=== PATIENT | female | born 1960 | race Two or more races ===

== ENCOUNTER 2023-06-29 19:20 | Emergency (ER) | payer MEDICAID, OTHER ==
[~2023-06-29] VITALS: Ht 154.9 cm; Wt 66.3 kg
[2023-06-29 19:58] LABS: Basophils # (auto) 0 10 ^3/uL (0-0.2); Basophils % (auto) 0.6 % (0.0-2.0); Eosinophils # (auto) 0.3 10 ^3/uL (0-0.8); Eosinophils % (auto) 3.9 % (0.0-7.0); Hematocrit 38.1 % (36.0-46.0); Hemoglobin 12.5 g/dL (12.2-16.2); Lymphocytes # (auto) 2.5 10 ^3/uL (0.4-5.4); Lymphocytes % (auto) 28.3 % (10.0-50.0); Mean Corpuscular Hemoglobin 29.2 pg (28.0-32.0); Mean Corpuscular Hgb Conc. 32.8 g/dL (32.0-36.0); Monocytes # (auto) 0.6 10 ^3/uL (0-1.3); Monocytes % (auto) 6.5 % (0.0-12.0); Neutrophils # (auto) 5.4 10 ^3/uL (1.6-8.6); Neutrophils % (auto) 60.7 % (37.0-80.0); Red Blood Cells 4.29 10^6/uL (4.0-5.20); Red Cell Distribution Width 13.6 % (11.8-14.3); White Blood Cell 8.8 10^3/uL (4.4-10.8)
[2023-06-29 20:31] LABS: Alanine Aminotransferase 21 U/L (7-40); Alkaline Phosphatase 77 U/L (46-116); Anion Gap 8.4 (5-15); BUN/Creatinine Ratio 26.3 (10.0-20.0); Blood Urea Nitrogen 20 mg/dL (9-23); Calcium 9.4 mg/dL (8.7-10.4); Carbon Dioxide 24.6 mmol/L (20-30); Chloride 108 mmol/L (98-107); Glucose 91 mg/dL (74-106); Magnesium 2.1 mg/dL (1.6-2.6); Sodium 141 mmol/L (136-145)
[2023-06-29 20:32] LABS: Albumin 4.4 g/dL (3.2-4.8); Aspartate Aminotransferase 8 U/L (13-40); Bilirubin, Total 0.3 mg/dL (0.2-1.0)
[2023-06-29] MEDS ORDERED: ZOFR4T PO (23:37)
[2023-06-29] MEDS ORDERED: MECL25CH85 PO (23:37)
[2023-06-29 23:53] VITALS: BP 132/82; PULSE 64; RESP 18; TEMP 97.9; O2SAT 97
== END 2023-06-29 23:56 | disposition home or self-care (01) ==
LOC: ER 19:20
DX: R07.9 Chest pain, unspecified (principal); R42 Dizziness and giddiness; J45.909 Unspecified asthma, uncomplicated; I10 Essential (primary) hypertension; Z88.0 Allergy status to penicillin
CPT/HCPCS: 36415; 70450; 71045; 80053; 83735; 83880; 84443; 84484; 85025; 93005

== ENCOUNTER 2025-04-06 10:38 | Emergency (ER) | payer MEDICAID ==
[~2025-04-06] VITALS: Ht 154.9 cm; Wt 61.3 kg
[~2025-04-06 10:38] MED LIST: MECL25CH85 PO; ZOFR4T PO
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
[2025-04-06] MEDS: KETOROLAC TROMETH 60MG/2ML VIAL IM ONE (11:36)
[2025-04-06] MEDS: METHOCARBAMOL 500 MG TAB PO ONE (11:36)
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
[2025-04-06] MEDS ORDERED: IBUP-1456 PO (13:30)
[2025-04-06] MEDS ORDERED: HYDR-4902 PO (13:30)
[2025-04-06] MEDS ORDERED: METH-1181 PO (13:30)
[2025-04-06 13:42] VITALS: BP 136/80; PULSE 62; RESP 16; TEMP 97.9; O2SAT 99
== END 2025-04-06 14:11 | disposition home or self-care (01) ==
LOC: ER 10:38
DX: S16.1XXA Strain of muscle, fascia and tendon at neck level, initial encounter (principal); S29.011A Strain of muscle and tendon of front wall of thorax, initial encounter; S46.912A Strain of unspecified muscle, fascia and tendon at shoulder and upper arm level, left arm, initial encounter; S20.219A Contusion of unspecified front wall of thorax, initial encounter; J45.909 Unspecified asthma, uncomplicated; I10 Essential (primary) hypertension; Z90.710 Acquired absence of both cervix and uterus; Z88.5 Allergy status to narcotic agent; Z88.0 Allergy status to penicillin; V89.2XXA Person injured in unspecified motor-vehicle accident, traffic, initial encounter; Y93.89 Activity, other specified; Y92.410 Unspecified street and highway as the place of occurrence of the external cause; Y99.8 Other external cause status
CPT/HCPCS: 71101; 72040; 73030; 96372; 99284; J1885

== ENCOUNTER 2025-07-14 12:52 | Inpatient (IN) | payer MEDICAID ==
[~2025-07-14] VITALS: Ht 154.9 cm; Wt 63.4 kg
[~2025-07-14 12:52] MED LIST changes: +HYDR-4902 PO; +IBUP-1456 PO; +METH-1181 PO
[2025-07-14] MEDS: MORPHINE SULFATE 4 MG/ML SYR/VIAL IV ONE (13:49)
[2025-07-14] MEDS: SODIUM CHLORIDE 0.9% 1,000 ML IV ONE (13:55)
[2025-07-14] MEDS: ONDANSETRON HCL 4 MG/2 ML VIAL IV ONE (13:55)
--- NOTE | 2025-07-14 14:00 | ED.PDOC ---
GI ASSESSMENT HPI Comments 65 y/o F, with PMHx of HTN and asthma presents to the ED for CC of diarrhea. Patient states, she has been having diarrhea with associated diffuse abdominal pain x9days. Patient reports, that she has been unable to keep food down since, commencement of symptoms. No other symptoms or modifying factors are present at this time. Chief Complaint: Diarrhea Time Seen by MD: 13:30 Primary Care Provider: [facility] Notes: Nurses Notes, Medications, Allergies Allergies: Coded Allergies: Codeine (Verified Allergy, Unknown, 04/06/25) Penicillins (Verified Allergy, Unknown, 06/29/23) Tramadol (Verified Allergy, Unknown, 04/06/25) Home Meds Active Scripts Hydrocodone-Acetaminophen (Hydrocodone Bitartrate/AC 5-325 mg) 1 Tab Tab, 1 TAB PO Q6HP PRN, #20 TAB Prn breakthrough pain Prov:ROBERT HERNANDEZ MD 04/06/25 Methocarbamol (Methocarbamol) 500 Mg Tab, 1000 MG PO Q8HP PRN, #30 TAB PRN muscle spasm Prov:ROBERT HERNANDEZ MD 04/06/25 Ibuprofen (Ibuprofen) 800 Mg Tab, 800 MG PO Q8HP PRN, #30 TAB Prn pain. take with food. Prov:ROBERT HERNANDEZ MD 04/06/25 Meclizine HCl (Antivert) 25 Mg Chw, 1 TAB PO Q8HR, #12 TAB.CHEW as needed for dizziness Prov:THEA GAMINO Q OWNER/PHOTOGRAPHER 06/29/23 Ondansetron Odt 4MG Tab (ZOFRAN PO) 4 Mg Tb, 1 TAB PO Q8HR, #12 TAB ODT TAB-DISSOLVE IN MOUTH, THEN SWALLOW as needed for nausea vomiting Prov:THEA GAMINO OWNER/PHOTOGRAPHER 06/29/23 Information Source: Patient Mode of Arrival: Ambulatory Timing: Days Duration: Since onset Prehospital treatment: None Vomitus: None Stool: Watery Severity: Moderate Recent: None Recent Hx of: None Pain Location: Diffuse Modifying Factors: Nothing Associated sign and symptoms: Diarrhea, Abdominal Pain Past Medical History PAST MEDICAL HISTORY: Asthma, HTN Surgical History: Hysterectomy COMMUNITY RELATIONS MANAGER History: Denies all COMMUNITY RELATIONS MANAGER Hx Family History Family History: Reviewed,noncontributory to illness Social History Smoker: Non-Smoker Alcohol: Denies ETOH Use Drugs: Denies Drug Use Lives In: Home Constitutional: denies: chills, diaphoresis, fatigue, fever, malaise, sweats, weakness, others EENTM: denies: blurred vision, double vision, ear bleeding, ear discharge, ear drainage, ear pain, ear ringing, eye pain, eye redness, hearing loss, mouth pain, mouth swelling, nasal discharge, nose bleeding, nose congestion, nose pain, photophobia, tearing, throat pain, throat swelling, voice changes, others Respiratory: denies: cough, hemoptysis, orthopnea, SOB at rest, shortness of breath, SOB with excertion, stridor, wheezing, others Cardiovascular: denies: chest pain, dizzy spells, diaphoresis, Dyspnea on exertion, edema, irregular heart beat, left arm pain, lightheadedness, palpitations, PND, syncope, others Gastrointestinal: reports: abdominal pain, diarrhea; denies: abdomen distended, blood streaked bowels, constipated, dysphagia, difficulty swallowing, hematemesis, melena, nausea, poor appetite, poor fluid intake, rectal bleeding, rectal pain, vomiting, others Genitourinary: denies: abnormal vagina bleeding, burning, dyspareunia, dysuria, flank pain, frequency, hematuria, incontinence, pain, , vagina discharge, urgency, others Neurological: denies: dizziness, fainting, headache, left sided numbness, left sided weakness, numbness, paresthesia, pre-existing deficit, right sided numbness, right sided weakness, seizure, speech problems, tingling, tremors, weakness, others Musculoskeletal: denies: back pain, gout, joint pain, joint swelling, muscle pain, muscle stiffness, neck pain, others Integumetry: denies: bruises, change in color, change in hair/nails, dryness, laceration, lesions, lumps, rash, wounds, others Allergic/Immunocompromised: denies: Difficulty Healing, Frequent Infections, Hives, Itching, others Hematologic/Lymphatic: denies: anemia, blood clots, easy bleeding, easy bruising, swollen glands, others Endocrine: denies: excessive hunger, excessive sweating, excessive thirst, excessive urination, flushing, intolerance to cold, intolerance to heat, unexplained weight gain, unexplained weight loss, others Psychiatric: denies: anxiety, bipolar disorder, depression, hopeless, panic disorder, schizophrenia, sleepless, suicidal, others All Other Systems: Reviewed and Negative Physical Exam General Appearance: Moderate Distress HEENT: Normal ENT Inspection, Pharynx Normal, TMs Normal Neck: Full Range of Motion, Non-Tender, Normal, Normal Inspection Respiratory: Chest Non-Tender, Lungs Clear, No Accessory Muscle Use, No Respiratory Distress, Normal Breath Sounds Cardiovascular: No Edema, No JVD, No Murmur, No Gallop, Normal Peripheral Pulses, Regular Rate/Rhythm Breast Exam: Deferred Gastrointestinal: No Organomegaly, Non Tender, No Pulsatile Mass, Normal Bowel Sounds, Soft Genitalia: Deferred Pelvic: Deferred Rectal: Deferred Extremities: No calf tenderness, Normal capillary refill, Normal inspection, Normal range of motion, Non-tender, No pedal edema Musculoskeletal : Apperance: Normal Neurologic: Alert, tankerman II-XII nml as Tested, No Motor Deficits, Normal Affect, Normal Mood, No Sensory Deficits Cerebellar Function: Normal Reflexes: Normal Skin: Dry, Normal Color, Warm Peripheral Pulses: 3+ Radial (R), 3+ Radial (L) Lymphatic: No Adenopathy Was a procedure done? Was a procedure done?: No GI differential Dx Differential Diagnosis: Constipation, Diverticular disease, Esophagitis, Gastritis/PUD, Gastroenteritis, Inflammatory BD, Food Poisoning, Bacterial, Viral X-Ray, Labs, Meds, VS Vital Signs Date Time Temp Pulse Resp B/P (MAP) Pulse Ox O2 Delivery O2 Flow Rate FiO2 07/14/25 12:54 97.9 89 16 136/71 99 97.9 Lab Test 07/14/25 13:57 Range/Units White Blood Count 8.9 4.4-10.8 10^3/uL Red Blood Count 4.56 4.0-5.20 10^6/uL Hemoglobin 13.5 12.2-16.2 g/dL Hematocrit 40.8 36.0-46.0 % Mean Corpuscular Volume 89.5 80.0-100.0 fL Mean Corpuscular Hemoglobin 29.6 28.0-32.0 pg Mean Corpuscular Hemoglobin Concent 33.0 32.0-36.0 g/dL Red Cell Distribution Width 13.8 11.8-14.3 % Platelet Count 296 140-450 10^3/uL Mean Platelet Volume 7.2 6.9-10.8 fL Neutrophils (%) (Auto) 65.7 37.0-80.0 % Lymphocytes (%) (Auto) 23.8 10.0-50.0 % Monocytes (%) (Auto) 6.7 0.0-12.0 % Eosinophils (%) (Auto) 3.4 0.0-7.0 % Basophils (%) (Auto) 0.4 0.0-2.0 % Neutrophils # (Auto) 5.9 1.6-8.6 10 ^3/uL Lymphocytes # (Auto) 2.1 0.4-5.4 10 ^3/uL Monocytes # (Auto) 0.6 0-1.3 10 ^3/uL Eosinophils # (Auto) 0.3 0-0.8 10 ^3/uL Basophils # (Auto) 0 0-0.2 10 ^3/uL Nucleated Red Blood Cells 0.1 % Sodium Level 142 136-145 mmol/L Potassium Level 4.1 3.5-5.1 mmol/L Chloride Level 110 H 98-107 mmol/L Carbon Dioxide Level 22 20-31 mmol/L Anion Gap 10 5-15 Blood Urea Nitrogen 18 9-23 mg/dL Creatinine 0.79 0.550-1.02 mg/dL Glomerular Filtration Rate Calc 83 >90 mL/min BUN/Creatinine Ratio 22.8 H 10.0-20.0 Serum Glucose 84 74-106 mg/dL Calcium Level 9.3 8.7-10.4 mg/dL Current Medications Medications (Trade) Dose Ordered Sig/Ella Route Start Time Stop Time Status Last Admin Sodium Chloride 1,000 ml @ 1,000 mls/hr Q1H ONCE IV 07/14/25 13:30 07/14/25 14:29 DC 07/14/25 13:55 Diphenoxylate HCl/ Atropine (Lomotil Tablet) 5 mg ONCE ONCE PO 07/14/25 13:30 07/14/25 13:31 DC 07/14/25 14:17 Ondansetron HCl (Zofran) 4 mg ONCE ONCE IV 07/14/25 13:30 07/14/25 13:31 DC 07/14/25 13:55 Patient alert. Complaining of diarrhea. Vitals stable. Answering questions. Abdomen is soft nontender. Establish intravenous access. Was given fluids. Was given Lomotil. Was given Zofran. WBC within normal limits. Hemoglobin within normal limits. CT scan of the abdomen reviewed does not show any acute process. Explained to the patient. Was told to follow up with her primary care physician. Was told to come back if there is any problem. [facility] [id number] [facility] [id number] Ph: [phone] DIAGNOSTIC IMAGING Diagnostic Imaging Report : [id number] Signed PATIENT: ADÁN CASHACCT: [id number] UNIT: [id number] : 1960 LOC: ER ROOM / BED: / AGE / SEX: 65 / F ADM STATUS: REG ER SERVICE 1329 ORDERING PHYSICIAN: AALIYAH ROSENBAUM MD PROCEDURE(s): ABPL - CT AB PEL WO CON-NO ORAL OR IV REASON: colitis ORDER NUMBER(s): [id number], ACCESSION NUMBER(s): [id number] CLINICAL INFORMATION: Colitis. TECHNIQUE: Axial CT images of the abdomen and pelvis were obtained without IV contrast. Coronal and sagittal reformatted images were obtained, reviewed, and stored. Evaluation of the parenchymal organs is limited without IV contrast. Evaluation of the bowel and mesentery is limited without oral contrast. All CT scans at this medical facility are performed using dose modulation techniques as appropriate to a performed exam including the following: Automated exposure control was utilized; adjustment of the MA and/or KV according to patient size; and use of iterative reconstruction technique. CTDIvol = 6.86 mGy DLP = 328.3 mGy-cm COMPARISON: None FINDINGS: Lung bases: Lung bases are clear. Liver: Grossly unremarkable in its noncontrast enhanced appearance. No abnormal density or focal lesion identified. Biliary: No calcified gallstones or biliary ductal dilatation. Spleen: Unremarkable. Pancreas: Grossly unremarkable in its noncontrast enhanced appearance. Adrenal glands: Unremarkable. No mass. Kidneys: Small nonobstructing bilateral renal calculi. No hydronephrosis or obstructing calculi. Aorta/Vascular: Moderate atherosclerotic calcification. No abdominal aortic aneurysm. Retroperitoneum: No mass or lymphadenopathy. Bowel/mesentery: Nonspecific nondilated fluid-filled small bowel loops. No small bowel obstruction. Appendix is not visualized. Pelvic organs: Uterus is surgically absent. Bladder: Unremarkable. No mass. Abdominal wall: No mass or hernia. Bones: No acute fracture or suspicious intraosseous lesion. Mild grade 1 anterolisthesis of L4 on L5. Minimal anterolisthesis of L5 on S1. Moderate to severe disc space narrowing at L4-L5 and L5-S1. IMPRESSION: 1. Nonspecific nondilated fluid-filled small bowel loops. Findings may be seen with ileus or enteritis in the appropriate clinical setting. No small bowel obstruction. 2. Bilateral nephrolithiasis. No hydronephrosis or obstructing calculi. 3. Additional findings as described above. ATED BY: ROBERTO CARLOS LYON DO DICTATED DATE/TIME: 07/14/251415 SIGNED BY: ROBERTO CARLOS LYON DO SIGNED DATE/TIME: 07/14/251415 CC: Time of 1ST Reevaluation: 14:00 Reevaluation 1ST: Improved Patient Education/Counseling: Diagnosis, Treatment Family Education/Counseling: No Family Present SEPSIS Sepsis Screen Date sepsis recognized/suspect: Jul 14, 2025 Time Sepsis recognized/suspect: 1254 Recent Procedure: No On Antibiotic Therapy: No Respiratory Rate >20: No Heart Rate >90: No Temp<36 C (96.8 F) or >38.3 C: No SBP <90 or MAP <65 mmHG: No New Acute Mental Status Change: No Is the patient on CPAP, BIPAP,: No Physician Orders Urinalysis (07/14/25 13:29) Ct Ab Pel Wo Con-No Oral Or Iv (07/14/25 13:29) Vital Signs Date Time Temp Pulse Resp B/P (MAP) Pulse Ox O2 Delivery O2 Flow Rate FiO2 07/14/25 12:54 97.9 89 16 136/71 99 97.9 Laboratory Tests Test 07/14/25 13:57 White Blood Count 8.9 10^3/uL (4.4-10.8) Medications Medications Dose Ordered Sig/Ella Route Start Time Stop Time Status Last Admin Dose Admin Diphenoxylate HCl/ Atropine 5 mg ONCE ONCE PO 07/14/25 13:30 07/14/25 13:31 DC 07/14/25 14:17 Ondansetron HCl 4 mg ONCE ONCE IV 07/14/25 13:30 07/14/25 13:31 DC 07/14/25 13:55 Sodium Chloride 1,000 ml @ 1,000 mls/hr Q1H ONCE IV 07/14/25 13:30 07/14/25 14:29 DC 07/14/25 13:55 Departure 1 Departure Time of Disposition: 14:49 Impression: Primary Impression: Gastroenteritis Disposition: 01 HOME / SELF CARE / HOMELESS Condition: Good Discharged With: Self Critical Care Note Critical Care Time?: No Stability Stability form required: No Heart Score Heart Score: Heart Score Response (Comments) Value History N/A 0 EKG N/A 0 Age N/A 0 Risk Factors N/A 0 Troponin N/A 0 Total 0 I personally scribed for AALIYAH ROSENBAUM MD ([email or web address]) on 07/14/25 at 14:00. Electronically submitted by Jess Cortes ([email or web address]). I personally scribed for AALIYAH ROSENBAUM MD ([email or web address]) on 07/14/25 at 14:53. Electronically submitted by Jess Cortes ([email or web address]). AALIYAH ROSENBAUM MD Jul 14, 2025 14:00
[2025-07-14] MEDS: DIPHENOXYLATE W/ATROPINE 2.5 MG TAB ONE ×2 (14:12→14:13)
[2025-07-14] MEDS: DIPHENOXYLATE W/ATROPINE 2.5 MG TAB PO ONE (14:17)
[2025-07-14 14:19] LABS: Hematocrit 40.8 % (36.0-46.0); Hemoglobin 13.5 g/dL (12.2-16.2); Mean Corpuscular Hemoglobin 29.6 pg (28.0-32.0); Mean Corpuscular Volume 89.5 fL (80.0-100.0); Nucleated Red Blood Cells % 0.1 %
--- NOTE | 2025-07-14 14:19 | DVH ---
CLINICAL INFORMATION: Colitis. TECHNIQUE: Axial CT images of the abdomen and pelvis were obtained without IV contrast. Coronal and s agittal reformatted images were obtained, reviewed, and stored. Evaluation of the parenchymal organs is limited without IV contrast. Evaluation of the bowel and mesentery is limited without oral contras t. All CT scans at this medical facility are performed using dose modulation techniques as appropriat e to a performed exam including the following: Automated exposure control was utilized; adjustment of the MA and/or KV according to patient size; and use of iterative reconstruction technique. CTDIvol = 6.86 mGy DLP = 328.3 mGy-cm COMPARISON: None FINDINGS: Lung bases: Lung bases are clear. Liver: Grossly unremarkable in its noncontrast enhanced appearance. No abnormal density or focal lesi on identified. Biliary: No calcified gallstones or biliary ductal dilatation. Spleen: Unremarkable. Pancreas: Grossly unremarkable in its noncontrast enhanced appearance. Adrenal glands: Unremarkable. No mass. Kidneys: Small nonobstructing bilateral renal calculi. No hydronephrosis or obstructing calculi. Aorta/Vascular: Moderate atherosclerotic calcification. No abdominal aortic aneurysm. Retroperitoneum: No mass or lymphadenopathy. Bowel/mesentery: Nonspecific nondilated fluid-filled small bowel loops. No small bowel obstruction. A ppendix is not visualized. Pelvic organs: Uterus is surgically absent. Bladder: Unremarkable. No mass. Abdominal wall: No mass or hernia. Bones: No acute fracture or suspicious intraosseous lesion. Mild grade 1 anterolisthesis of L4 on L5. Minimal anterolisthesis of L5 on S1. Moderate to severe disc space narrowing at L4-L5 and L5-S1. IMPRESSION: 1. Nonspecific nondilated fluid-filled small bowel loops. Findings may be seen with ileus or enteriti s in the appropriate clinical setting. No small bowel obstruction. 2. Bilateral nephrolithiasis. No hydronephrosis or obstructing calculi. 3. Additional findings as described above.
[2025-07-14 14:26] LABS: Potassium 4.1 mmol/L (3.5-5.1); Sodium 142 mmol/L (136-145)
[2025-07-14 14:27] LABS: Anion Gap 10 (5-15); Calcium 9.3 mg/dL (8.7-10.4); Carbon Dioxide 22 mmol/L (20-31); Chloride 110 mmol/L (98-107)
[2025-07-14 14:32] LABS: BUN/Creatinine Ratio 22.8 (10.0-20.0); Blood Urea Nitrogen 18 mg/dL (9-23); Glucose 84 mg/dL (74-106)
[2025-07-14 15:30] LABS: Urine Protein, UAD Negative (Negative)
[2025-07-14] MEDS ORDERED: MORPHINE SULFATE INJ 2 MG/ml SYRG IV PRN (17:30)
[2025-07-14] MEDS ORDERED: ONDANSETRON HCL 4 MG/2 ML VIAL IV PRN (17:30)
[2025-07-14] MEDS ORDERED: NITROGLYCERIN 0.4 MG SL TAB SL PRN (17:30)
[2025-07-14] MEDS ORDERED: ACETAMINOPHEN 325 MG TAB PO PRN (17:30)
[2025-07-14] MEDS ORDERED: HYDROcodone-ACET 5/325MG TAB PO PRN (17:30)
--- NOTE | 2025-07-14 18:06 | DVHHPRES ---
History of Present Illness Resident Creating Document: CHERYL,TAMARA RESIDENT History of Present Illness savannah Parr is a 65 years old female with a PMH of asthma and prediabetes presented to the ED with the ED with the chief complaints of nausea, vomiting and diarrhea for 9 days. Patient reported that her symptoms began suddenly 9 days ago when she woke up with a abdominal cramps in the middle of night, associated with the diarrhea which is watery approximately 4 times per day without blood. She has been vomiting as well without blood but for past 2 days she has been experiencing weakness and dizziness with the episodes of near fainting and also difficulty with the eating stating everything comes through the mouth so which prompted her to visit ED patient denies eating outside, sick contact, recent travel, recent antibiotic usage. Patient also denies fever, chest pain, chills, and other associated symptoms. PMH: As above PSH: Hysterectomy Family history: Noncontributory Social history: Lives at home. Denies smoking, alcohol and other drug abuse Allergies: Codeine, penicillin, tramadol, morphine Home medications: Unable to recall Patient seen and examined at the bedside. Patient currently reporting having nausea, vomiting, diarrhea but abdominal pain has been improved. Rest of ROS is negative Review of Systems Allergies: Coded Allergies: Codeine (Verified Allergy, Unknown, 04/06/25) Penicillins (Verified Allergy, Unknown, 06/29/23) Tramadol (Verified Allergy, Unknown, 04/06/25) Medications Current Medications Medications Dose Ordered Sig/Ella Route Start Time Stop Time Status Last Admin Dose Admin Sodium Chloride 10 ml Q8HR IV 07/14/25 22:00 Sodium Chloride 1,000 ml @ 60 mls/hr [id number] IV 07/14/25 17:30 Acetaminophen/ Hydrocodone Bitart 1 tab Q4HP PRN PO 07/14/25 17:30 UNV Ondansetron HCl 4 mg Q4HP PRN IV 07/14/25 17:30 Enoxaparin Sodium 40 mg DAILY SC 07/15/25 10:00 UNV Acetaminophen 650 mg Q6HP PRN PO 07/14/25 17:30 Nitroglycerin 0.4 mg Q5MINP PRN SL 07/14/25 17:30 Morphine Sulfate 2 mg Q30M PRN IV 07/14/25 17:30 UNV Metronidazole 100 ml @ 100 mls/hr Q8HR IV 07/14/25 22:00 Pantoprazole Sodium 40 mg BID IV 07/14/25 22:00 Sucralfate 1 gm BID@0600,2200 PO 07/14/25 22:00 Metoclopramide HCl 10 mg Q12HR IV 07/14/25 22:00 Exam Vital Signs Vital Signs Date Time Temp Pulse Resp B/P (MAP) Pulse Ox O2 Delivery O2 Flow Rate FiO2 07/14/25 17:20 98.2 65 18 134/77 (96) 97 98.2 Exam Pt is lying on bed General Appearance: Alert, Oriented X3, Cooperative, Not in acute distress HEENT: Atraumatic, Mucous membranes moist/pink Respiratory: Clear to auscultation, Normal air movement, No added sounds Cardiovascular: Regular rate, Normal S1, Normal S2, No murmurs Abdominal: Umbilical tenderness, Soft, no distention, Extremities: No edema, Normal pulses, No tenderness/swelling Skin: No Significant rash, except past surgical scars Neuro: Normal speech, sensorimotor deficits none Psych/Mental Status: Mental status NL, Mood NL Nurse was there as shoe handler during examination Labs/Xrays Labs Test 07/14/25 13:57 Range/Units White Blood Count 8.9 4.4-10.8 10^3/uL Red Blood Count 4.56 4.0-5.20 10^6/uL Hemoglobin 13.5 12.2-16.2 g/dL Hematocrit 40.8 36.0-46.0 % Mean Corpuscular Volume 89.5 80.0-100.0 fL Mean Corpuscular Hemoglobin 29.6 28.0-32.0 pg Mean Corpuscular Hemoglobin Concent 33.0 32.0-36.0 g/dL Red Cell Distribution Width 13.8 11.8-14.3 % Platelet Count 296 140-450 10^3/uL Mean Platelet Volume 7.2 6.9-10.8 fL Neutrophils (%) (Auto) 65.7 37.0-80.0 % Lymphocytes (%) (Auto) 23.8 10.0-50.0 % Monocytes (%) (Auto) 6.7 0.0-12.0 % Eosinophils (%) (Auto) 3.4 0.0-7.0 % Basophils (%) (Auto) 0.4 0.0-2.0 % Neutrophils # (Auto) 5.9 1.6-8.6 10 ^3/uL Lymphocytes # (Auto) 2.1 0.4-5.4 10 ^3/uL Monocytes # (Auto) 0.6 0-1.3 10 ^3/uL Eosinophils # (Auto) 0.3 0-0.8 10 ^3/uL Basophils # (Auto) 0 0-0.2 10 ^3/uL Nucleated Red Blood Cells 0.1 % Urine Color Light-yellow Yellow Urine Clarity Clear Clear Urine pH 5.5 5.0-9.0 Urine Specific [place] 1.027 1.001-1.035 Urine Protein Negative Negative Urine Ketones Negative Negative Urine Blood Negative Negative /uL Urine Nitrite Negative Negative Urine Bilirubin Negative Negative Urine Urobilinogen Normal Negative mg/dL Urine Leukocyte Esterase Negative Negative /uL Urine RBC <1 0 - 4 /hpf Urine Microscopic WBC 2 0-5 /HPF Urine Squamous Epithelial Cells Few <5 /hpf Urine Bacteria None seen None Seen /hpf Urine Mucus Few None Seen Urine Glucose Normal Normal mg/dL Sodium Level 142 136-145 mmol/L Potassium Level 4.1 3.5-5.1 mmol/L Chloride Level 110 H 98-107 mmol/L Carbon Dioxide Level 22 20-31 mmol/L Anion Gap 10 5-15 Blood Urea Nitrogen 18 9-23 mg/dL Creatinine 0.79 0.550-1.02 mg/dL Glomerular Filtration Rate Calc 83 >90 mL/min BUN/Creatinine Ratio 22.8 H 10.0-20.0 Serum Glucose 84 74-106 mg/dL Calcium Level 9.3 8.7-10.4 mg/dL SEPSIS Sepsis Screen Date sepsis recognized/suspect: Jul 14, 2025 Time Sepsis recognized/suspect: 4 Recent Procedure: No On Antibiotic Therapy: No Respiratory Rate >20: No Heart Rate >90: No Temp<36 C (96.8 F) or >38.3 C: No SBP <90 or MAP <65 mmHG: No New Acute Mental Status Change: No Is the patient on CPAP, BIPAP,: No Physician Orders Ct Ab Pel Wo Con-No Oral Or Iv (07/14/25 13:29) Admit (07/14/25 17:28) Allergies (07/14/25 17:28) Code Status (07/14/25 17:28) Sodium Chloride Lock (Saline Lock Ns) (07/14/25 22:00) Sodium Chloride 0.9% (07/14/25 17:30) Hydrocodone-Acet 5/325mg Tab ([place] 5/32 (07/14/25 17:30) Ondansetron Hcl (Zofran) (07/14/25 17:30) Enoxaparin Sodium (Lovenox) (07/15/25 10:00) Complete Blood Count (07/15/25 04:00) Comprehensive Metabolic Panel (07/15/25 04:00) Condition: Fair (07/14/25 17:28) Acetaminophen Tablet (Tylenol Tablet) (07/14/25 17:30) Clear Liq Diet (07/14/25 Dinner) Nitroglycerin Sublingual (Ntrostat Subli (07/14/25 17:30) Morphine Sulfate Injection (07/14/25 17:30) Oxygen By Nasal Cannula (07/14/25:28) Stat Ekg For Chest Pain (07/14/25:28) Notify Md Of Changes From Base (07/14/25 17:28) Leather Crafter For 24 Hours (07/14/25 17:28) Emergency Dysrhythmia Protocol (07/14/25:) Rhythm Strips Once Every Shift (07/14/25:) Stool Bacterial Culture (07/14/25:28) Stool Wbc (07/14/25:) Clostridium Difficile Toxin (07/14/25:) B-Type Natriuretic Peptide (07/14/25 17:28) C-Reactive Protein (07/14/25:) Drug Screen (07/14/25:28) Hemoglobin A1c (07/14/25 17:28) Hepatic Panel (07/14/25:) Lactic Acid W/ Reflex Order (07/14/25:) Lipase (07/14/25:) Magnesium (07/14/25:28) PTPTT (07/14/25:28) Thyroid Stimulating Hormone (07/14/25:28) Metronidazole 500mg/100ml (Flagyl 500mg/ (07/14/25 22:00) Pantoprazole (Protonix) (07/14/25 22:00) Sucralfate Susp (Carafate Susp) (07/14/25 22:00) Metoclopramide Injection (Reglan Injecti (07/14/25 22:00) Ceftriaxone Ivpb Rocephin (07/15/25 09:00) Ceftriaxone Ivpb Rocephin (07/14/25 18:15) Vital Signs Date Time Temp Pulse Resp B/P (MAP) Pulse Ox O2 Delivery O2 Flow Rate FiO2 07/14/25 17:20 98.2 65 18 134/77 (96) 97 98.2 07/14/25 12:54 97.9 89 16 136/71 99 97.9 Laboratory Tests Test 07/14/25 13:57 White Blood Count 8.9 10^3/uL (4.4-10.8) Medications Medications Dose Ordered Sig/Ella Route Start Time Stop Time Status Last Admin Dose Admin Diphenoxylate HCl/ Atropine 5 mg ONCE ONCE PO 07/14/25 13:30 07/14/25 13:31 DC 07/14/25 14:17 5 MG Ondansetron HCl 4 mg ONCE ONCE IV 07/14/25 13:30 07/14/25 13:31 DC 07/14/25 13:55 4 MG Sodium Chloride 1,000 ml @ 1,000 mls/hr Q1H ONCE IV 07/14/25 13:30 07/14/25 14:29 DC 07/14/25 13:55 1,000 MLS/HR Assessment/Plan Assessment/Plan Acute gastroenteritis likely infectious etiology Possible erosive esophagitis Rule out C diff - On Protonix bid - Carafate - Flagyl and rocephin - IV fluids - stool studies - CT abdominal pelvis, findings of ileus/enteritis - Reglan Nonobstructive bilateral nephrolithiasis - IV fluids - Supportive managements for now - evident on CT GERD -Protonix GI PPX: Protonix VTE ppx: Lovenox Diet: clear liquids and advanced as tolerated Goals of care addressed with the patient for more than 27 minutes: Full code status Case discussed with Dr. Mccullough ,patient and nurse Plan discussed with: Patient, Son My Orders Orders - TAMARA LUNA RESIDENT Procedure Category Date Status Time Admit ADMIT 07/14/25 Transmitted 17:28 Allergies DL 07/14/25 In Process 17:28 Code Status CODE 07/14/25 Transmitted 17:28 Sodium Chloride Lock PHA 07/14/25 In Process (Saline Lock Ns) 22:00 Sodium Chloride 0.9% PHA 07/14/25 In Process 17:30 Hydrocodone-Acet PHA 07/14/25 Logged 5/325mg Tab ([place] 17:30 Ondansetron Hcl PHA 07/14/25 In Process (Zofran) 17:30 Enoxaparin Sodium PHA 07/15/25 Logged (Lovenox) 10:00 Complete Blood Count LAB 07/15/25 Verified 04:00 Comprehensive LAB 07/15/25 Verified Metabolic Panel 04:00 Condition: Fair DL 07/14/25 In Process 17:28 Acetaminophen Tablet PHA 07/14/25 In Process (Tylenol Tablet) 17:30 Clear Liq Diet DIET 07/14/25 Transmitted Dinner Nitroglycerin PHA 07/14/25 In Process Sublingual (Ntrostat 17:30 Morphine Sulfate PHA 07/14/25 Logged Injection 17:30 Oxygen By Nasal RT 07/14/25 Transmitted Cannula 17:28 Stat Ekg For Chest DL 07/14/25 In Process Pain 17:28 Notify Md Of Changes DL 07/14/25 In Process From Base 17:28 Leather Crafter For DL 07/14/25 In Process 24 Hours 17:28 Emergency Dysrhythmia DL 07/14/25 In Process Protocol 17:28 Rhythm Strips Once DL 07/14/25 In Process Every Shift 17:28 Stool Bacterial SUJATA 07/14/25 Logged Culture 17:28 Stool Wbc LAB 07/14/25 Logged 17:28 Clostridium Difficile SUJATA 07/14/25 Logged Toxin 17:28 B-Type Natriuretic LAB 07/14/25 Logged Peptide 17:28 C-Reactive Protein LAB 07/14/25 In Process 17:28 Drug Screen LAB 07/14/25 Logged 17:28 Hemoglobin A1c LAB 07/14/25 In Process 17:28 Hepatic Panel LAB 07/14/25 In Process 17:28 Lactic Acid W/ Reflex LAB 07/14/25 Logged Order 17:28 Lipase LAB 07/14/25 In Process 17:28 Magnesium LAB 07/14/25 In Process 17:28 PTPTT LAB 07/14/25 Logged 17:28 Thyroid Stimulating LAB 07/14/25 In Process Hormone 17:28 Metronidazole PHA 07/14/25 In Process 500mg/100ml (Flagyl 22:00 Pantoprazole PHA 07/14/25 In Process (Protonix) 22:00 Sucralfate Susp PHA 07/14/25 In Process (Carafate Susp) 22:00 Metoclopramide PHA 07/14/25 In Process Injection (Reglan 22:00 Ceftriaxone Ivpb PHA 07/15/25 Transmitted Rocephin 09:00 Ceftriaxone Ivpb PHA 07/14/25 Transmitted Rocephin 18:15 Date of Service: Jul 14, 2025 TAMARA LUNA RESIDENT Jul 14, 2025 18:06
[2025-07-14 18:20] LABS: Bilirubin, Direct 0.1 mg/dL (<0.3)
[2025-07-14 18:37] LABS: Lipase 33.0 U/L (12-53)
[2025-07-14 18:45] LABS: Alanine Aminotransferase 21.0 U/L (7-40); Albumin 4.8 g/dL (3.2-4.8); Alkaline Phosphatase 74.0 U/L (46-116); Bilirubin, Total 0.4 mg/dL (0.2-1.0); Magnesium 2.1 mg/dL (1.6-2.6); Total Protein 7.5 g/dL (5.7-8.2)
[2025-07-14 19:08] LABS: INR 0.98 (0.9-1.15); Partial Thromboplastin Time 32.1 SEC (24.5-34.5); Prothrombin Time 10.4 sec (9.3-11.8)
[2025-07-14 21:48] LABS: Amphetamine Screen, Urine Neg (NEGATIVE); Barbiturate Scree,Urine Neg (NEGATIVE); Benzodiazephine Screen, Urine Neg (NEGATIVE); Cannabinoid Screen, Urine Neg (NEGATIVE); Cocaine Screen, Urine Neg (NEGATIVE); Opiate Scree,Urine Neg (NEGATIVE); Phencyclidine Screen, Urine Neg (NEGATIVE)
[2025-07-14] MEDS: SODIUM CHLOR 0.9% PF (SALINE LOCK) 10ML VIAL/SYR IV SCH (23:56)
[2025-07-14] MEDS: ONDANSETRON HCL 4 MG/2 ML VIAL ONE (23:57)
[2025-07-15] MEDS: SUCRALFATE 1 GM/10 ML ORAL SUSP PO SCH (00:10)
[2025-07-15] MEDS: PANTOPRAZOLE 40 MG/10 ML VIAL INJ IV SCH (00:10)
[2025-07-15] MEDS: METOCLOPRAMIDE HCL 5MG/ml INJ 2ml VIAL IV SCH (00:10)
[2025-07-15] MEDS: SUCRALFATE 1 GM/10 ML ORAL SUSP ONE ×2 (00:12→06:30)
[2025-07-15 00:16] VITALS: O2SAT 98
[2025-07-15] MEDS: SODIUM CHLORIDE 0.9% 1,000 ML IV SCH (00:29)
[2025-07-15 07:15] LABS: Alanine Aminotransferase 20 U/L (7-40); Albumin 4.4 g/dL (3.2-4.8); Alkaline Phosphatase 67 U/L (46-116); Anion Gap 14 (5-15); BUN/Creatinine Ratio 15.9 (10.0-20.0); Bilirubin, Total 0.3 mg/dL (0.2-1.0); Blood Urea Nitrogen 11 mg/dL (9-23); Calcium 8.8 mg/dL (8.7-10.4); Glucose 76 mg/dL (74-106); Potassium 3.7 mmol/L (3.5-5.1); Sodium 143 mmol/L (136-145); Total Protein 7.1 g/dL (5.7-8.2)
[2025-07-15 07:21] LABS: Carbon Dioxide 18 mmol/L (20-31); Chloride 111 mmol/L (98-107)
[2025-07-15 07:46] LABS: Hematocrit 39.6 % (36.0-46.0); Hemoglobin 13.3 g/dL (12.2-16.2); Mean Corpuscular Hemoglobin 29.9 pg (28.0-32.0); Mean Corpuscular Volume 88.9 fL (80.0-100.0); Nucleated Red Blood Cells % 0.2 %
[2025-07-15] MEDS: ENOXAPARIN SOD 40 MG/0.4 ML SYRINGE SC SCH (10:00)
[2025-07-15] MEDS: SODIUM CHLORIDE 0.9% 1,000 ML IV ONE (13:30)
[2025-07-15 14:10] LABS: Free T4 (Free Thyroxine) 1.18 ng/dL (0.89-1.76)
[2025-07-15] MEDS ORDERED: ALBU108A5 PO (16:26)
[2025-07-15 16:33] VITALS: BP 115/58; PULSE 74; RESP 14; TEMP 98.1; O2SAT 97
--- NOTE | 2025-07-15 17:00 | DVHPNRES ---
Progress Note Date Seen: Jul 15, 2025 Resident Creating Document: JOSE YATES RESIDENT Medical Necessity Reason Pt with a Central, PICC or Fol: No Subjective Review of Systems savannah Parr is a 65 years old female with a PMH of asthma and prediabetes presented to the ED with the chief complaints of nausea, vomiting and diarrhea for 9 days. Patient reported that her symptoms began suddenly 9 days ago when she woke up with abdominal cramps in the middle of night, associated with the diarrhea which is watery approximately 4 times per day without blood. She has been vomiting as well without blood but for past 2 days she has been experiencing weakness and dizziness with the episodes of near fainting and also difficulty with the eating stating everything comes through the mouth so which prompted her to visit ED patient denies eating outside, sick contact, recent travel, recent antibiotic usage. Patient also denies fever, chest pain, chills, and other associated symptoms. PMH: As above PSH: Hysterectomy Family history: Noncontributory Social history: Lives at home. Denies smoking, alcohol and other drug abuse Allergies: Codeine, penicillin, tramadol, morphine Home medications: Unable to recall Patient seen and examined at the bedside. Patient currently reporting having nausea, vomiting, diarrhea but abdominal pain has been improved. Rest of ROS is negative Coded Allergies: Codeine (Verified Allergy, Unknown, 04/06/25) Penicillins (Verified Allergy, Unknown, 06/29/23) Tramadol (Verified Allergy, Unknown, 04/06/25) 07/15- patient was seen at bedside today. Diarrhea has resolved and patient feels better. Labs and charts were reviewed. Antibiotics were discontinued and a possible discharge for tomorrow was discussed with the patient. Objective vital signs Vital Sign Date Time Temp Pulse Resp B/P (MAP) Pulse Ox O2 Delivery O2 Flow Rate FiO2 07/15/25 16:33 98.1 74 14 115/58 (77) 97 98.1 07/15/25 08:18 Room Air* 0 21 Total Intake and Output 07/14/25 07/14/25 07/15/25 15:00 23:00 07:00 Intake Total 100 ml Balance 100 ml medications Current Medications Medications Dose Ordered Sig/Ella Route Start Time Stop Time Status Last Admin Dose Admin Sodium Chloride 10 ml Q8HR IV 07/14/25 22:00 07/15/25 14:00 10 ML Acetaminophen/ Hydrocodone Bitart 1 tab Q4HP PRN PO 07/14/25 17:30 Ondansetron HCl 4 mg Q4HP PRN IV 07/14/25 17:30 Enoxaparin Sodium 40 mg DAILY SC 07/15/25 10:00 Acetaminophen 650 mg Q6HP PRN PO 07/14/25 17:30 Nitroglycerin 0.4 mg Q5MINP PRN SL 07/14/25 17:30 Morphine Sulfate 2 mg Q30M PRN IV 07/14/25 17:30 Pantoprazole Sodium 40 mg BID IV 07/14/25 22:00 07/15/25 00:10 40 MG Sucralfate 1 gm BID@0600,2200 PO 07/14/25 22:00 07/15/25 06:27 1 GM Metoclopramide HCl 10 mg Q12HR IV 07/14/25 22:00 07/15/25 00:10 10 MG Examination Pt is lying on bed General Appearance: Alert, Oriented X3, Cooperative, Not in acute distress HEENT: Atraumatic, Mucous membranes moist/pink Respiratory: Clear to auscultation, Normal air movement, No added sounds Cardiovascular: Regular rate, Normal S1, Normal S2, No murmurs Abdominal: Umbilical tenderness, Soft, no distention, Extremities: No edema, Normal pulses, No tenderness/swelling Skin: No Significant rash, except past surgical scars Neuro: Normal speech, sensorimotor deficits none Psych/Mental Status: Mental status NL, Mood NL Nurse was there as mallet cutter during examination laboratory and microbiology Laboratory Tests 07/15/25 06:34 Test 07/15/25 06:34 Range/Units Serum Glucose 76 74-106 mg/dL Microbiology Date/Time Source Procedure Growth Status 07/14/25 17:28 Stool Ordered Labs and/or images reviewed: Labs reviewed by me, Image(s) reviewed by me Problem List/Assessment/Plan Plan discussed with: Patient My Orders My Orders Acute gastroenteritis likely infectious etiology Possible erosive esophagitis Rule out C diff - On Protonix bid - Carafate - Flagyl and rocephin - IV fluids - stool studies - CT abdominal pelvis, findings of ileus/enteritis - Reglan Nonobstructive bilateral nephrolithiasis - IV fluids - Supportive managements for now - evident on CT GERD -Protonix GI PPX: Protonix VTE ppx: Lovenox Diet: clear liquids and advanced as tolerated Goals of care addressed with the patient for more than 27 minutes: Full code status Case discussed with Dr Cardoza ,patient and nurse JOSE YATES RESIDENT Jul 15, 2025 17:00
[2025-07-15 18:25] VITALS: BP 154/98; PULSE 70; RESP 18; TEMP 97.9; O2SAT 98
[2025-07-15 20:00] VITALS: RESP 18; O2SAT 96
[2025-07-15 21:00] VITALS: BP 135/83; PULSE 68; RESP 18; TEMP 97.5; O2SAT 99
[2025-07-16 01:00] VITALS: BP 117/73; PULSE 76; RESP 18; TEMP 98.4; O2SAT 98
[2025-07-16 05:00] VITALS: BP 110/70; PULSE 82; RESP 18; TEMP 98.7; O2SAT 97
[2025-07-16 07:28] LABS: Hematocrit 34.8 % (36.0-46.0); Hemoglobin 11.8 g/dL (12.2-16.2); Mean Corpuscular Hemoglobin 30.0 pg (28.0-32.0); Mean Corpuscular Volume 88.4 fL (80.0-100.0); Nucleated Red Blood Cells % 0.0 %
[2025-07-16 07:39] LABS: Potassium 3.5 mmol/L (3.5-5.1); Sodium 144 mmol/L (136-145)
[2025-07-16 07:40] LABS: Anion Gap 10 (5-15); Carbon Dioxide 22 mmol/L (20-31)
[2025-07-16 07:45] LABS: BUN/Creatinine Ratio 15.6 (10.0-20.0); Blood Urea Nitrogen 10 mg/dL (9-23); Calcium 8.6 mg/dL (8.7-10.4); Chloride 112 mmol/L (98-107); Glucose 81 mg/dL (74-106)
[2025-07-16 08:45] VITALS: BP 120/71; PULSE 68; RESP 16; TEMP 97.9; O2SAT 99
[2025-07-16] MEDS ORDERED: PANT40TA2 PO (11:13)
[2025-07-16] MEDS ORDERED: SUCR1SUS26 PO (11:13)
[2025-07-16] MEDS ORDERED: ZOFR4T PO (11:13)
--- NOTE | 2025-07-16 16:30 | DVHDSRES ---
Discharge Summary Date of Admission Resident Creating Document: JOSE YATES RESIDENT Jul 14, 2025 at 17:28 Date of Discharge: Jul 16, 2025 Labs/Diagnostic Data: Laboratory Results Test 07/16/25 05:59 07/15/25 11:25 07/15/25 06:34 07/14/25 18:32 White Blood Count 6.7 10^3/uL (4.4-10.8) Red Blood Count 3.94 10^6/uL (4.0-5.20) Hemoglobin 11.8 g/dL (12.2-16.2) Hematocrit 34.8 % (36.0-46.0) Mean Corpuscular Volume 88.4 fL (80.0-100.0) Mean Corpuscular Hemoglobin 30.0 pg (28.0-32.0) Mean Corpuscular Hemoglobin Concent 33.9 g/dL (32.0-36.0) Red Cell Distribution Width 13.7 % (11.8-14.3) Platelet Count 251 10^3/uL (140-450) Mean Platelet Volume 7.7 fL (6.9-10.8) Neutrophils (%) (Auto) 54.6 % (37.0-80.0) Lymphocytes (%) (Auto) 32.4 % (10.0-50.0) Monocytes (%) (Auto) 7.3 % (0.0-12.0) Eosinophils (%) (Auto) 5.4 % (0.0-7.0) Basophils (%) (Auto) 0.3 % (0.0-2.0) Neutrophils # (Auto) 3.6 10 ^3/uL (1.6-8.6) Lymphocytes # (Auto) 2.2 10 ^3/uL (0.4-5.4) Monocytes # (Auto) 0.5 10 ^3/uL (0-1.3) Eosinophils # (Auto) 0.4 10 ^3/uL (0-0.8) Basophils # (Auto) 0 10 ^3/uL (0-0.2) Nucleated Red Blood Cells 0.0 % Sodium Level 144 mmol/L (136-145) Potassium Level 3.5 mmol/L (3.5-5.1) Chloride Level 112 mmol/L (98-107) Carbon Dioxide Level 22 mmol/L (20-31) Anion Gap 10 (5-15) Blood Urea Nitrogen 10 mg/dL (9-23) Creatinine 0.64 mg/dL (0.550-1.02) Glomerular Filtration Rate Calc 99 mL/min (>90) BUN/Creatinine Ratio 15.6 (10.0-20.0) Serum Glucose 81 mg/dL (74-106) Calcium Level 8.6 mg/dL (8.7-10.4) Free Thyroxine (T4) Calculated 1.18 ng/dL (0.89-1.76) Total Triiodothyronine (TT3) 0.97 ng/mL (0.60-1.81) Total Bilirubin 0.3 mg/dL (0.2-1.0) Aspartate Amino Transferase (AST) 16 U/L (13-40) Alanine Aminotransferase (ALT) 20 U/L (7-40) Alkaline Phosphatase 67 U/L (46-116) Total Protein 7.1 g/dL (5.7-8.2) Albumin 4.4 g/dL (3.2-4.8) Prothrombin Time 10.4 sec (9.3-11.8) Prothrombin Time INR 0.98 (0.9-1.15) Activated Partial Thromboplast Time 32.1 SEC (24.5-34.5) Lactic Acid Level 1.1 mmol/L (0.4-2.0) B-Type Natriuretic Peptide 2.53 pg/mL (0-100) Test 07/14/25 13:57 07/14/25 13:55 07/14/25 13:54 Urine Color Light-yellow (Yellow) Urine Clarity Clear (Clear) Urine pH 5.5 (5.0-9.0) Urine Specific [place] 1.027 (1.001-1.035) Urine Protein Negative (Negative) Urine Ketones Negative (Negative) Urine Blood Negative /uL (Negative) Urine Nitrite Negative (Negative) Urine Bilirubin Negative (Negative) Urine Urobilinogen Normal mg/dL (Negative) Urine Leukocyte Esterase Negative /uL (Negative) Urine RBC <1 /hpf (0 - 4) Urine Microscopic WBC 2 /HPF (0-5) Urine Squamous Epithelial Cells Few /hpf (<5) Urine Bacteria None seen /hpf (None Seen) Urine Mucus Few (None Seen) Urine Glucose Normal mg/dL (Normal) Hemoglobin A1c 5.8 % A1C (<5.7) Thyroid Stimulating Hormone (TSH) 0.32 uIU/mL (0.55-4.78) Magnesium Level 2.1 mg/dL (1.6-2.6) Direct Bilirubin 0.1 mg/dL (<0.3) C-Reactive Protein High Sensitivity 0.42 mg/dL (<1.0) Lipase 33 U/L (12-53) Urine Opiates Screen Neg (NEGATIVE) Urine Fentanyl Screen Neg (NEGATIVE) Urine Barbiturates Screen Neg (NEGATIVE) Urine Phencyclidine Screen Neg (NEGATIVE) Urine Amphetamines Screen Neg (NEGATIVE) Urine Benzodiazepines Screen Neg (NEGATIVE) Urine Cocaine Screen Neg (NEGATIVE) Urine Cannabinoids Screen Neg (NEGATIVE) Other Laboratory Tests 07/16/25 05:59 Brief Hx & Hospital Course: savannah Parr is a 65 years old female with a PMH of asthma and prediabetes presented to the ED with the chief complaints of nausea, vomiting and diarrhea for 9 days. Patient reported that her symptoms began suddenly 9 days ago when she woke up with abdominal cramps in the middle of night, associated with the diarrhea which is watery approximately 4 times per day without blood. She has been vomiting as well without blood but for past 2 days she has been experiencing weakness and dizziness with the episodes of near fainting and also difficulty with the eating stating everything comes through the mouth so which prompted her to visit ED patient denies eating outside, sick contact, recent travel, recent antibiotic usage. Patient also denies fever, chest pain, chills, and other associated symptoms. Patient continued to have nausea, vomiting, diarrhea today after the admission but the abdominal pain improved. CT abdomen was done which showed Nonspecific nondilated fluid-filled small bowel loops. Findings may be seen with ileus or enteritis in the appropriate clinical setting. No small bowel obstruction.Bilateral nephrolithiasis. No hydronephrosis or obstructing calculi. Patient's diarrhea resolved and IV antibiotics were discontinued. On evaluation today, patient states that she no longer has diarrhea. She is clinically stable and all labs are within range. Patient is discharged home in a stable condition with Protonix and Carafate .All recommendations were explained thoroughly to the patient and she demonstrated complete understanding of the same. Questions were answered and concerns were addressed. Patient was asked to follow-up with PCP and GI and in the discharge Clinic. PMH: As above PSH: Hysterectomy Family history: Noncontributory Social history: Lives at home. Denies smoking, alcohol and other drug abuse Home medications: Unable to recall Patient seen and examined at the bedside. Patient currently reporting having nausea, vomiting, diarrhea but abdominal pain has been improved. Rest of ROS is negative Coded Allergies: Codeine (Verified Allergy, Unknown, 04/06/25) Penicillins (Verified Allergy, Unknown, 06/29/23) Tramadol (Verified Allergy, Unknown, 04/06/25) Pt is lying on bed General Appearance: Alert, Oriented X3, Cooperative, Not in acute distress HEENT: Atraumatic, Mucous membranes moist/pink Respiratory: Clear to auscultation, Normal air movement, No added sounds Cardiovascular: Regular rate, Normal S1, Normal S2, No murmurs Abdomina:no tenderness, Soft, no distention, Extremities: No edema, Normal pulses, No tenderness/swelling Skin: No Significant rash, except past surgical scars Neuro: Normal speech, sensorimotor deficits none Psych/Mental Status: Mental status NL, Mood NL Nurse was there as aquatics group fitness instructor during examination Operations or Procedures PROCEDURE(s): ABPL - CT AB PEL WO CON-NO ORAL OR IV REASON: colitis ORDER NUMBER(s): [id number], ACCESSION NUMBER(s): [id number] 1. Nonspecific nondilated fluid-filled small bowel loops. Findings may be seen with ileus or enteritis in the appropriate clinical setting. No small bowel obstruction. 2. Bilateral nephrolithiasis. No hydronephrosis or obstructing calculi. 3. Additional findings as described above. Condition at Discharge: Fair Final Diagnosis/Problems List Acute gastroenteritis, likely infectious etiology Possible erosive esophagitis Nonobstructive bilateral nephrolithiasis GERD Discharge Disposition: Home Discharge Instruct/Medications Diet: Consistent carbohydrate Activity: No Restrictions, As Tolerated Follow Up/Referral: follow up in dc clinic follow up with pcp follow up with GI for possible EGD Scheduled Meclizine HCl (Antivert), 1 TAB PO Q8HR Ondansetron Odt 4MG Tab (Zofran Po), 1 TAB PO Q8HR Pantoprazole Sodium Sesquihydr (Protonix), 40 MG PO BID Sucralfate (Carafate Susp), 1 GM PO TID Scheduled PRN Albuterol Sulfate (Albuterol Sulfate Hfa), 2 PUFF PO for SHORTNESS OF BREATH, (Reported) Hydrocodone-Acetaminophen (Hydrocodone Bitartrate/AC 5-325 mg), 1 TAB PO Q6HP PRN Methocarbamol (Methocarbamol), 1,000 MG PO Q8HP PRN Discontinued Medications Ibuprofen (Ibuprofen), 800 MG PO Q8HP PRN Discharge Statement: "Patient was advised to return to the ER or call 911 if any headaches, dizziness, shortness of breath, chest pain, abdominal pain, bleeding, fevers, or worsening of medical condition. Patient was counseled about treatment plan, medications, possible side effects, patientverbalized understanding. All questions were answered to the best of my ability. This discharge took greater then 30 minutes in planning, reviewing documentation, counseling the patient, and discussing with other team members." ASSESSMENT ASSESSMENT Hospital Course savannah Parr is a 65 years old female with a PMH of asthma and prediabetes presented to the ED with the chief complaints of nausea, vomiting and diarrhea for 9 days. Patient reported that her symptoms began suddenly 9 days ago when she woke up with abdominal cramps in the middle of night, associated with the diarrhea which is watery approximately 4 times per day without blood. She has been vomiting as well without blood but for past 2 days she has been experiencing weakness and dizziness with the episodes of near fainting and also difficulty with the eating stating everything comes through the mouth so which prompted her to visit ED patient denies eating outside, sick contact, recent travel, recent antibiotic usage. Patient also denies fever, chest pain, chills, and other associated symptoms. Patient continued to have nausea, vomiting, diarrhea today after the admission but the abdominal pain improved. CT abdomen was done which showed Nonspecific nondilated fluid-filled small bowel loops. Findings may be seen with ileus or enteritis in the appropriate clinical setting. No small bowel obstruction.Bilateral nephrolithiasis. No hydronephrosis or obstructing calculi. Patient's diarrhea resolved and IV antibiotics were discontinued. On evaluation today, patient states that she no longer has diarrhea. She is clinically stable and all labs are within range. Patient is discharged home in a stable condition with Protonix and Carafate .All recommendations were explained thoroughly to the patient and she demonstrated complete understanding of the same. Questions were answered and concerns were addressed. Patient was asked to follow-up with PCP and GI and in the discharge Clinic. Assessment acute gastroenteritis, likely infectious etiology Possible erosive esophagitis Nonobstructive bilateral nephrolithiasis GERD JOSE YATES RESIDENT Jul 16, 2025 16:30
== END 2025-07-16 12:30 | disposition home or self-care (01) | DRG 249 ==
LOC: ER 12:52 → OVERFLOW 17:28 → EAST 07-15 18:02
PROVIDERS: ADMIT Internal Medicine Geriatric Medicine; ATTEND Internal Medicine Geriatric Medicine
DX: A09 Infectious gastroenteritis and colitis, unspecified (principal); K22.10 Ulcer of esophagus without bleeding; E11.9 Type 2 diabetes mellitus without complications; I10 Essential (primary) hypertension; J45.909 Unspecified asthma, uncomplicated; K21.9 Gastro-esophageal reflux disease without esophagitis; N20.0 Calculus of kidney; Z88.5 Allergy status to narcotic agent; Z88.0 Allergy status to penicillin; Z90.710 Acquired absence of both cervix and uterus
CPT/HCPCS: 36415; 74176; 80048; 80053; 80076; 80307; 81001; 83036; 83605; 83690; 83735; 83880; 84439; 84443; 84480; 85025; 85610; 85730; 86141; 96361; 96374; G0378; J2405; J2470; J3490